=== PATIENT | male | born 1950 | race Caucasian/White ===

== ENCOUNTER → 2024-06-27 08:55 | Day surgery (SDC) | payer MEDICARE, OTHER, SELFPAY ==
[2024-06-27 10:42] LABS: Hemoglobin 14.1 g/dL (13.0-18.0); Mean Corp Hgb Conc. 34.4 g/dL (33.0-37.0); Mean Corpuscular Hgb 30.4 pg (27.0-31.0); Mean Corpuscular Volume 88.4 fL (80.0-94.0); Platelet Count 130 10^3/uL (130-400); Red Blood Cell Count 4.64 10^6/uL (4.70-6.10); Red Cell Dist. Width 12.3 % (11.5-14.5); White Blood Cell Count 7.7 10^3/uL (4.8-10.8)
[2024-06-27 11:59] LABS: ALT (SGPT) 30 U/L (0-50); AST (SGOT) 29 U/L (17-59); Albumin 4.1 g/dl (3.5-5.0); Alkaline Phosphatase 62 U/L (38-126); Blood Urea Nitrogen 15 mg/dl (9-20); Calcium 9.3 mg/dl (8.4-10.2); Carbon Dioxide 21 mmol/L (22-30); Chloride 106 mmol/L (98-107); Glucose 102 mg/dl (70-99); Potassium 4.2 mmol/L (3.5-5.1); Sodium 143 mmol/L (135-145); Total Bilirubin 1.5 mg/dl (0.2-1.3); Total Protein 6.9 g/dl (6.3-8.2); eGFR > 60.00
== END ==
LOC: SDSPAT 08:55
PROVIDERS: ATTENDING PHYSICIAN Orthopaedic Surgery Orthopaedic Surgery of the Spine; FAMILY PHYSICIAN Internal Medicine
DX: Z01.812 Encounter for preprocedural laboratory examination (principal)
CPT/HCPCS: 80053; 36415; 85027; 86850; 86900; 86901; 87070

== ENCOUNTER 2024-07-02 12:53 | Inpatient (IN) | payer MEDICARE, OTHER, SELFPAY ==
[2024-06-27 09:29] VITALS: BMI 24.4
[2024-06-30 08:30] VITALS: BMI 24.4
[2024-07-02] VITALS (20 sets, daily range): BP systolic 106–144; BP diastolic 61–82
[2024-07-02] MEDS: TYLENOL 1000 MG PO ×2 (07:40→20:28)
[2024-07-02] MEDS: LYRICA 150 MG PO (07:40)
[2024-07-02] MEDS: SKELAXIN 800 MG PO (07:40)
[2024-07-02] MEDS: CELEBREX 200 MG PO (07:40)
[2024-07-02] MEDS: NORMOSOL-R/PLASMALYTE-A 1000 IV ×3 (07:55→21:31)
[2024-07-02] MEDS: DILAUDID 0.5 MG IV ×2 (11:27→11:53)
[2024-07-02] MEDS: SUBLIMAZE 25 MCG IV ×3 (12:42→16:37)
--- NOTE | 2024-07-02 14:36 | W.PN.ORTHO ---
Today's Communication / Plan
-
D/c when clinically stable.
Assessment
.
Distal Motor Intact: Yes
Dressing:
Clean, dry and intact.
Assessment:
Lumbar stenosis w/ neurogenic claudication s/p L3-L4 Laminectomy and Fusion w/ Dr James 07/02/24
DVT prophylaxis - b/l SCDs/TEDs
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
Mcconnell�s esophagus - continue PPI
HLD
B/l venous insufficiency
CVA noted on previous MRI
Lyme disease
H/o tobacco abuse
Plan
.
Surgery / Date: L3-L4 Laminectomy and Fusion w/ Dr Matsonu 07/02/24
DVT Prophylaxis: Other (b/l SCDs/TEDs)
Activity:
Out of bed.
PT/OT
Discharge Plan: Home
Subjective
.
.:
Patient resting comfortably in PACU.
Minimal incisional pain currently reported.
Denies any new significant complaints.
Vital Signs and Labs
.
Vital Signs and Labs:
Temp Pulse Resp BP Pulse Ox
98.1 F 54 16 132/82 96
07/02/24 07:33 07/02/24 07:33 07/02/24 07:33 07/02/24 07:33 07/02/24 07:33
Physical Exam
-
HEENT: No pallor, cyanosis, or jaundice. Throat clear.
NECK: Supple. No JVD.
RESPIRATORY: Lungs clear to auscultation.
CVS: S1, S2 normal. RRR.�
ABDOMEN: Soft, non-tender. No distension.
EXTREMITIES: Strength equal, no calf pain with palpation/dorsiflexion. Calves soft.
PBX TEACHER: AOx3. No focal deficits. maintenance journeyman grossly intact
[2024-07-02] MEDS: NEURONTIN 100 MG PO ×3 (16:33→21:32)
--- NOTE | 2024-07-02 17:30 | PTCARENOTE ---
Patient arrived from PACU @17:30 in bed, VSS, dressing lower back c/d/i.
[2024-07-02] MEDS: TYLENOL PO (18:14)
[2024-07-02] MEDS: ULTRAM 50 MG PO (18:18)
[2024-07-02] MEDS: LIPITOR 40 MG PO (18:18)
[2024-07-02] MEDS: PROTONIX 40 MG PO (18:18)
[2024-07-02] MEDS: ANCEF 5 IV (18:18)
[2024-07-02] MEDS: VITAMIN D3 (cholecalciferol) 25 MCG PO (18:19)
[2024-07-02] MEDS: SENOKOT 17.2 MG PO (20:28)
[2024-07-02] MEDS: COLACE 100 MG PO (20:28)
[2024-07-02] MEDS: ROXICODONE 10 MG PO (20:39)
[2024-07-03] MEDS: ULTRAM 50 MG PO ×3 (00:10→12:15)
[2024-07-03] MEDS: ANCEF 5 IV (00:11)
[2024-07-03] MEDS: FLUSH (NSS) 1 FLUSH IV (00:11)
[2024-07-03] MEDS: TYLENOL PO (02:07)
[2024-07-03 03:39] VITALS: BP 111/64
[2024-07-03 06:33] LABS: Hematocrit 36.4 % (39.0-52.0); Hemoglobin 12.8 g/dL (13.0-18.0); Platelet Count 118 10^3/uL (130-400)
[2024-07-03 07:08] LABS: Blood Urea Nitrogen 17 mg/dl (9-20); Calcium 8.5 mg/dl (8.4-10.2); Carbon Dioxide 26 mmol/L (22-30); Chloride 104 mmol/L (98-107); Estimated Creatinine Clearance 81 ml/min; Glucose 115 mg/dl (70-99); Potassium 4.4 mmol/L (3.5-5.1); Sodium 139 mmol/L (135-145); eGFR > 60.00
[2024-07-03 07:34] VITALS: BP 107/56
[2024-07-03] MEDS: COLACE 100 MG PO (08:51)
[2024-07-03] MEDS: LIPITOR 40 MG PO (08:52)
[2024-07-03] MEDS: PROTONIX 40 MG PO (08:52)
[2024-07-03] MEDS: VITAMIN D3 (cholecalciferol) 25 MCG PO (08:52)
[2024-07-03] MEDS: NEURONTIN 100 MG PO (08:52)
[2024-07-03] MEDS: TYLENOL 1000 MG PO (08:52)
[2024-07-03] MEDS: SENOKOT 17.2 MG PO (08:52)
[2024-07-03 11:05] VITALS: BP 110/63; PULSE 55
[2024-07-03 11:18] VITALS: BP 110/63
[2024-07-03 11:24] VITALS: PULSE 53; O2SAT 99
--- NOTE | 2024-07-03 11:47 | W.PN.ORTHO ---
Today's Communication / Plan
-
D/c today since clinically stable.
Assessment
.
Distal Motor Intact: Yes
Dressing:
Clean, dry and intact.
Assessment:
Lumbar stenosis w/ neurogenic claudication s/p L3-L4 Laminectomy and Fusion w/ Dr James 07/02/24
DVT prophylaxis - b/l SCDs/TEDs
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
Mcconnell�s esophagus - continue PPI
HLD
B/l venous insufficiency
CVA noted on previous MRI
Lyme disease
H/o tobacco abuse
Plan
.
Surgery / Date: L3-L4 Laminectomy and Fusion w/ Dr James 07/02/24
DVT Prophylaxis: Other (b/l SCDs/TEDs)
Activity:
Out of bed.
PT/OT
Discharge Plan: Home
Subjective
.
.:
Patient resting comfortably in his bed.
Low back pain tolerable w/ current pain meds.
Denies any new significant complaints.
Eager for potential d/c today.
Vital Signs and Labs
.
Vital Signs and Labs:
Lab Results
07/03/24 04:52
07/03/24 04:52
Temp Pulse Resp BP Pulse Ox
98 F 65 18 110/63 100
07/03/24 11:18 07/03/24 11:18 07/03/24 11:18 07/03/24 11:18 07/03/24 11:18
Physical Exam
-
HEENT: No pallor, cyanosis, or jaundice. Throat clear.
NECK: Supple. No JVD.
RESPIRATORY: Lungs clear to auscultation.
CVS: S1, S2 normal. RRR.�
ABDOMEN: Soft, non-tender. No distension.
EXTREMITIES: Strength equal, no calf pain with palpation/dorsiflexion. Calves soft.
BOXING TRAINER: AOx3. No focal deficits. migrant leader grossly intact
--- NOTE | 2024-07-03 11:54 | W.DS.TRANS ---
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
-
Discharge Instructions:
Sleep Apnea Risk Low
Discharge Diagnosis/Procedures Lumbar stenosis w/ neurogenic claudication s/p
L3-L4 Laminectomy and Fusion w/ Dr James 07/02/24
Diet Regular
Activity As tolerated
Additional Activity No heavy lifting >10 lbs
Driving Restrictions Not until seen by your Dr
Bathing Restrictions OK to shower in 4 days
Instructions:
Stand-Alone Forms: [facility] D/C Inst.
Changes to Home Medications: Yes
Discharge Medications:
DC Medications w/original date entered in [employer]
B6 1 dose PO DAILY Supplement 06/30/24
aspirin 81 mg tablet,delayed release 81 mg PO DAILY Blood Clot Prevention/Tx 06/30/24
atorvastatin 40 mg tablet 40 mg PO DAILY High Cholesterol 06/30/24
cholecalciferol (vitamin D3) 25 mcg (1,000 unit) capsule (Vitamin D3) 25 mcg PO DAILY Supplement 06/30/24
folic acid 1,000 mcg PO DAILY Supplement 06/30/24
mecobalamin (vitamin B12) 1,000 mcg chewable tablet (B12 Active) 1,000 mcg PO DAILY Supplement 06/30/24
niacin 500 mg tablet 500 mg PO DAILY Supplement 06/30/24
omeprazole 40 mg capsule,delayed release 40 mg PO DAILY GERD 06/30/24
Saccharomyces boulardii 250 mg capsule (Florastor) 250 mg PO BID #10 caps 07/03/24
acetaminophen 500 mg tablet (Tylenol Extra Strength) 1,000 mg (2 x 500 mg) PO Q6H #60 tabs 07/03/24
cephalexin 500 mg capsule 500 mg PO QID #20 caps 07/03/24
docusate sodium 100 mg capsule 100 mg PO BID #30 caps 07/03/24
gabapentin 100 mg capsule 100 mg PO TID neuropathic pain #1 cap 07/03/24
ondansetron HCl 4 mg tablet 4 mg PO Q6H PRN nausea and vomiting #30 tabs 07/03/24
oxycodone 5 mg tablet 5 - 10 mg (1 - 2 x 5 mg) PO Q6H PRN moderate-severe pain #30 tabs 07/03/24
sennosides 8.6 mg tablet (Senna Laxative) 17.2 mg (2 x 8.6 mg) PO BID #30 tabs 07/03/24
Home Medication Changes
Saccharomyces boulardii 250 mg capsule (Florastor) 250 mg PO BID #10 caps 07/03/24
acetaminophen 500 mg tablet (Tylenol Extra Strength) 1,000 mg (2 x 500 mg) PO Q6H #60 tabs 07/03/24
cephalexin 500 mg capsule 500 mg PO QID #20 caps 07/03/24
docusate sodium 100 mg capsule 100 mg PO BID #30 caps 07/03/24
ondansetron HCl 4 mg tablet 4 mg PO Q6H PRN nausea and vomiting #30 tabs 07/03/24
oxycodone 5 mg tablet 5 - 10 mg (1 - 2 x 5 mg) PO Q6H PRN moderate-severe pain #30 tabs 07/03/24
sennosides 8.6 mg tablet (Senna Laxative) 17.2 mg (2 x 8.6 mg) PO BID #30 tabs 07/03/24
Pending Results: No
--- NOTE | 2024-07-03 11:58 | CM ---
Met with pt at bedside
Pt reports he lives with his GF in a multistory home; 1 step to enter, FF set up/BR
Active, independent, driving
DME - cane, rolling walker
SNF/HH - denies past hx - has used [facility] in past for PT
Has ride at discharge
PCP - Ezra Reynaga
Pharm - [facility]
Discussed IMM
Plan - anticipate home no needs at present
== END 2024-07-03 13:11 | disposition home or self-care (01) | DRG 460 ==
LOC: 2 SOUTH 12:53
PROVIDERS: Physician Assistant; ADMITTING PHYSICIAN Orthopaedic Surgery Orthopaedic Surgery of the Spine; FAMILY PHYSICIAN Internal Medicine
PROC: 0SG00K1 Fusion of Lumbar Vertebral Joint with Nonautologous Tissue Substitute, Posterior Approach, Posterior Column, Open Approach (ICD-10-PCS; 2024-07-02)
DX: M48.062 Spinal stenosis, lumbar region with neurogenic claudication (principal); D69.3 Immune thrombocytopenic purpura; M43.16 Spondylolisthesis, lumbar region; E78.5 Hyperlipidemia, unspecified; K22.70 Barrett's esophagus without dysplasia; R73.03 Prediabetes; E53.8 Deficiency of other specified B group vitamins; I87.2 Venous insufficiency (chronic) (peripheral); Z79.82 Long term (current) use of aspirin; Z79.899 Other long term (current) drug therapy; Z86.73 Personal history of transient ischemic attack (TIA), and cerebral infarction without residual deficits
CPT/HCPCS: 72100; 76000; 80048; 85014; 85018; 85049; 86850; 86900; 86901; 97162; 97166; C1713; C1776

== ENCOUNTER → 2025-06-09 18:38 | Outpatient (REF) | payer MEDICARE, OTHER, SELFPAY | LOC: MRI 3T 18:38 | PROVIDERS: ATTENDING PHYSICIAN Internal Medicine | DX: R10.32 Left lower quadrant pain (principal); G89.29 Other chronic pain; M16.12 Unilateral primary osteoarthritis, left hip | CPT/HCPCS: 72197; A9575 ==